=== PATIENT | male | born 1975 | race Caucasian/White ===

== ENCOUNTER 2018-12-31 06:12 | Day surgery (SDC) | payer BC ==
[2018-12-31 06:12] VITALS: PULSE 125
[2018-12-31 06:29] VITALS: BMI 31.6
[2018-12-31 06:33] VITALS: RESP 18
[2018-12-31 08:02] LABS: BASO % 0.4 % (0.0-2.0); EOS # 0.1 K/uL (0.0-0.7); HEMOGLOBIN 14.1 g/dL (12.0-18.0); LYMPH # 1.4 K/uL (1.0-4.3); LYMPH % 21.6 % (20.0-40.0); MEAN CELL VOLUME 85.4 fl (80.0-94.0); MEAN CORPUSCULAR HEMOGLOBIN 28.8 pg (27.0-31.0); MEAN CORPUSCULAR HGB CONC 33.7 g/dL (33.0-37.0); MEAN PLATELET VOLUME 8.5 fl (7.2-11.7); MONO # 0.6 K/uL (0.0-0.8); NEUT # 4.3 K/uL (1.8-7.0); NRBC % 0.1 % (0.0-0.0); RBC 4.9 Mil/uL (4.40-5.90); RED CELL DISTRIBUTION WIDTH 13.1 % (11.5-14.5); WHITE BLOOD COUNT 6.4 K/uL (4.8-10.8)
[2018-12-31 08:09] LABS: PROTHROMBIN TIME 11.3 Seconds (9.8-13.1)
[2018-12-31 08:12] LABS: PARTIAL THROMBOPLASTIN TIME 27.8 Seconds (25.6-37.1)
--- NOTE | 2018-12-31 08:12 | ED PDOC ---
Upper Extremity Pain/Injury Time Seen by Provider: 12/31/18 07:06 Chief Complaint (Nursing): Upper Extremity Problem/Injury Chief Complaint (Provider): Left Elbow Pain History Per: Patient History/Exam Limitations: no limitations Onset/Duration Of Symptoms: Days (1) Current Symptoms Are (Timing): Still Present Quality: "Pain" Additional Complaint(s): 43 year old male presents to the ED for an evaluation of elbow injury onset yesterday. Patient reports he was working out yesterday and lifting weights in the gym when he felt pain to his left elbow and noticed swelling in the area. He had difficulty moving his left elbow and patient went to [facility] where he obtained an x-ray that presented no fracture but was advised a need for a follow up with an orthopedic. Dr. Bernard was called to come to the ED for urgent evaluation. Currently, patient has pain to the left elbow and denies any other complaints. Otherwise, he denies fever, cough or neck pain. PMD: [facility]: Dr. Bernard Past Medical History Reviewed: Historical Data, Nursing Documentation, Vital Signs Vital Signs: Last Vital Signs Temp 98.1 F 12/31/18 06:29 Pulse 76 12/31/18 06:29 Resp 18 12/31/18 06:29 BP 147/87 12/31/18 06:29 Pulse Ox 98 12/31/18 06:29 - Medical History PMH: No Chronic Diseases Denies: Chronic Kidney Disease - Surgical History Other surgeries: right elbow surgery - Family History Family History: States: Unknown Family Hx - Social History Current smoker - smoking cessation education provided: No Alcohol: Social Drugs: Denies - Immunization History Hx Tetanus Toxoid Vaccination: No - Home Medications Home Medications: Ambulatory Orders Medication Instructions Recorded Docusate Sodium [Colace] 100 mg PO BID #10 capsule 12/31/18 Ondansetron HCl [Zofran] 4 mg PO Q6 PRN #10 tablet 12/31/18 oxyCODONE/Acetaminophen [Percocet 1 - 2 ea PO Q4 PRN #30 tab 12/31/18 5/325 mg Tab] - Allergies Allergies/Adverse Reactions: Allergies Allergy/AdvReac Type Severity Reaction Status Date / Time No Known Allergies Allergy Verified 12/31/18 06:29 Review of Systems ROS Statement: Except As Marked, All Systems Reviewed And Found Negative Constitutional: Negative for: Fever, Chills Respiratory: Negative for: Cough, Shortness of Breath Musculoskeletal: Positive for: Other (left elbow pain). Negative for: Neck Pain Neurological: Negative for: Weakness, Numbness Physical Exam - Reviewed Nursing Documentation Reviewed: Yes Vital Signs Reviewed: Yes - Physical Exam Appears: Positive for: Non-toxic Head Exam: Positive for: ATRAUMATIC, NORMAL INSPECTION, NORMOCEPHALIC Skin: Positive for: Normal Color, Warm, Dry. Negative for: Rash Eye Exam: Positive for: EOMI, Normal appearance, PERRL Pulses-Radial (L): 2+ Pulses-Radial (R): 2+ Extremity: Positive for: Normal ROM, Other (On posterior aspect of left elbow and distal aspect of left forearm there is swelling, tenderness and full ROM that is painful). Negative for: Deformity Neurologic/Psych: Positive for: Alert, Oriented (x3) - Laboratory Results Result Diagrams: 12/31/18 07:36 12/31/18 07:36 Lab Results: PT 11.3 Seconds (9.8-13.1) 12/31/18 07:36 INR 1.0 12/31/18 07:36 - ECG O2 Sat by Pulse Oximetry: 98 (RA) Pulse Ox Interpretation: Normal Medical Decision Making Medical Decision Making: Time: 07 Impression: left elbow injury and pain Differential Diagnosis includes but is not limited to: triceps muscle tear, tendon injury and ligament injury Plan: --BBK type and screen --BMP --NPO Diet --CBC w/ Differential --Partial Thromboplastin Time [COAG] --Prothrombin Time [COAG] --Upper EXT any JNT w/o Cont LT [MRI] --Reevaluation Patient's x-ray results are negative at [facility] Case discussed with Dr. Bernard who requested stat MRI of the left elbow Scribe Attestation: Documented by Annabel Donnelly, acting as a scribe for Jahaira Charles MD. Provider Scribe Attestation: All medical record entries made by the Scribe were at my direction and personally dictated by me. I have reviewed the chart and agree that the record accurately reflects my personal performance of the history, physical exam, medical decision making, and the department course for this patient. I have also personally directed, reviewed, and agree with the discharge instructions and disposition. Disposition - Clinical Impression Clinical Impression: Shoulder injury - Patient ED Disposition Is Patient to be Admitted: Yes Discussed With DrJaime: Rachel Bernard Counseled Patient/Family Regarding: Studies Performed, Diagnosis - Disposition Disposition Time: 08:00 Condition: FAIR - Pt Status Changed To: Hospital Disposition Of: SDS- Endo,OR,Cath,IR - POA Present On Arrival: Falls Or Trauma
[2018-12-31 08:14] LABS: BLOOD UREA NITROGEN 18 mg/dl (9-20); CALCIUM 9.4 mg/dL (8.4-10.2); GFR NON-AFRICAN AMERICAN > 60
[2018-12-31] MEDS ORDERED: Lidocaine 4% (Laryng-O-Jet) Kit MM ONE (09:29)
[2018-12-31] MEDS ORDERED: Propofol 10 mg/ml Inj (20 ML) ONE (09:29)
[2018-12-31] MEDS ORDERED: Rocuronium 10 mg/ml (5 ml) ONE (09:29)
[2018-12-31] MEDS ORDERED: Midazolam 2 MG/2 ML VIAL ONE (09:29)
[2018-12-31] MEDS ORDERED: Phenylephrine 10 mg/ml Inj ONE (09:31)
--- NOTE | 2018-12-31 10:11 | MRI ---
MRI left elbow HISTORY: Injury. Evaluate triceps tendon. Comparison: None available. Technique: Multi-echo multiplanar sequences were performed through the left elbow without the use of intravenous contrast. Findings: Complete rupture of the distal triceps tendon from its insertion on the posterior olecranon with tendon retraction measuring 2.5 centimeters. Prominent increased signal extending to the myotendinous junction as well as the adjacent muscle belly suggestive for muscle strain. Large amount of fluid, edema, and hemorrhage seen within the olecranon bursa as well as within the adjacent soft tissues. Biceps and brachialis tendon insertions are preserved. Small elbow joint effusion. Mild increased signal seen within the ulnar nerve as it traverses the cubital tunnel. Clinical correlation. Some mild fraying with increased signal seen within the proximal attachments of the radial collateral and lateral ulnar collateral ligaments which may represent sprain and or partial tearing. Clinical correlation. Mild increased signal seen within the proximal attachment of the common extensor as well as the common flexor tendons. Mild increased signal seen within the proximal attachment of the ulnar collateral ligament also suggestive for a sprain and or mild partial tearing. Clinical correlation. Impression: 1. Complete rupture of the distal triceps tendon from its insertion on the posterior olecranon with tendon retraction measuring 2.5 centimeters. Prominent increased signal extending to the myotendinous junction as well as the adjacent muscle belly suggestive for muscle strain. 2. Large amount of fluid, edema, and hemorrhage seen within the olecranon bursa as well as within the adjacent soft tissues. 3. Small elbow joint effusion. 4. Mild increased signal seen within the ulnar nerve as it traverses the cubital tunnel. Clinical correlation. 5. Some mild fraying with increased signal seen within the proximal attachments of the radial collateral and lateral ulnar collateral ligaments which may represent sprain and or partial tearing. Clinical correlation. 6. Mild increased signal seen within the proximal attachment of the common extensor as well as the common flexor tendons. 7. Mild increased signal seen within the proximal attachment of the ulnar collateral ligament also suggestive for a sprain and or mild partial tearing. Clinical correlation.
[2018-12-31] MEDS ORDERED: Lactated Ringer's 1,000 ML IV ONE ×3 (10:34→16:00)
--- NOTE | 2018-12-31 10:44 | RAD ---
Date of service: 12/31/2018 HISTORY: med clearance COMPARISON: No prior. TECHNIQUE: Chest PA and lateral FINDINGS: LUNGS: No active pulmonary disease. PLEURA: No significant pleural effusion identified. No pneumothorax apparent. CARDIOVASCULAR: No aortic atherosclerotic calcification present. Upper limits normal cardiac size. No pulmonary vascular congestion. OSSEOUS STRUCTURES: No significant abnormalities. VISUALIZED UPPER ABDOMEN: Normal. OTHER FINDINGS: None. IMPRESSION: Borderline cardiomegaly. No pulmonary vascular congestion or acute pulmonary disease appreciable.
[2018-12-31 11:50] LABS: SQUAMOUS EPITHIAL < 1 /hpf (0-5); URINE BILIRUBIN NEGATIVE (NEGATIVE); URINE CLARITY CLEAR (Clear); URINE COLOR YELLOW (YELLOW); URINE GLUCOSE (UA) NEG (NEGATIVE); URINE LEUKOCYTE ESTERASE NEG Leu/uL (Negative); URINE PROTEIN NEGATIVE (NEGATIVE); URINE UROBILINOGEN 0.2-1.0 mg/dL (0.2-1.0)
[2018-12-31 11:56] LABS: URINE BLOOD TRACE (NEGATIVE)
[2018-12-31] MEDS ORDERED: Lidocaine 2% w Epi 1:100,000 Inj IJ ONE (12:02)
[2018-12-31] MEDS ORDERED: Liquid Adhesive TOP ONE (13:17)
[2018-12-31] MEDS ORDERED: Neostigmine 1:1000 (1 mg/ml) Inj ONE (13:18)
--- NOTE | 2018-12-31 13:45 | PCM.SURG1 ---
Surgeon's Initial Post Op Note - Surgeon's Notes Surgeon: Rachel Bernard MD Orchestra Teacher: Tanvir Ng PA-C; Cristy Crow Type of Anesthesia: General Endo Pre-Operative Diagnosis: Left elbow triceps tendon rupture Operative Findings: see op report Post-Operative Diagnosis: same as pre-op dx Operation Performed: Left elbow open repair of triceps tendon Specimen/Specimens Removed: left elbow olecrenon bursa Estimated Blood Loss: EBL {In ML}: 15 Date of Surgery/Procedure: 12/31/18 Time of Surgery/Procedure: 11:00
[2018-12-31] MEDS ORDERED: Oxycodone/Acetaminophen 5/325 mg Tab PO PRN (13:46)
[2018-12-31] MEDS ORDERED: Lactated Ringer's 1,000 ML IV SCH (14:00)
[2018-12-31] MEDS: HYDROmorphone 0.5 mg/0.5 ml ISec IVP PRN ×2 (15:05→15:20)
[2018-12-31] MEDS ORDERED: Oxycodone/Acetaminophen 5/325 mg Tab PO ONE (17:10)
[2018-12-31 17:33] VITALS: BP 141/79; PULSE 76; TEMP 97.7
--- NOTE | 2018-12-31 20:31 | CARD ---
APPROVED REPORT Date of service: 12/31/2018 EKG Measurement Heart [id number] <Conclusion> Normal sinus rhythm Minimal voltage criteria for LVH, may be normal variant Borderline ECG
--- NOTE | 2019-01-01 00:05 | CON ---
DATE: 12/31/2018 ER CONSULTATION DATE OF OPERATION: 12/31/2018 CHIEF COMPLAINT: Left elbow pain. HISTORY OF PRESENT ILLNESS: The patient is a 43-year-old male who felt a pop in his left elbow. The patient presented to [facility] Emergency Room. He was unable to extend against gravity, and there was a valgus deformity of the left elbow at the triceps insertion. The patient denies pain in any other extremity joint, denies any loss of consciousness. PHYSICAL EXAMINATION: EXTREMITIES: Examination of the patient's left elbow reveals extensive swelling and ecchymosis with a palpable defect of triceps tendon. The patient is unable to extend against gravity. Neurovascularly intact distally. IMAGING: MRI of the patient's left elbow showing a near-complete tear of the triceps tendon insertion. ASSESSMENT: A 43-year-old male with acute left triceps tendon rupture. TREATMENT: I have explained to the patient that due to near-complete rupture and inability to extend the arm, the patient requires open surgical fixation with possible allograft supplementation as needed. I have reviewed the risks and benefits of the surgery with the patient. The patient will be taken to the operating room today for open fixation. Rachel Bernard MD
--- NOTE | 2019-01-01 00:29 | OP ---
PROCEDURE DATE: 12/31/2018 ATTENDING PHYSICIAN: Rachel Bernard MD INDUSTRIAL MAINTENANCE TECHNICIAN: Tanvir Ng PA-C PREOPERATIVE DIAGNOSES: 1. Left triceps tendon rupture. 2. Olecranon bursitis and hematoma. POSTOPERATIVE DIAGNOSES: 1. Left triceps tendon rupture. 2. Olecranon bursitis and hematoma. PROCEDURES: 1. Left open triceps tendon repair. 2. Allograft augmentation of degenerative triceps tendon. 3. Extensive debridement of soft tissue and bone including olecranon bursa. IMPLANTS: 1. Arthrex suture anchors. 2. Dermal allograft. ANESTHESIA TYPE: General. ESTIMATED BLOOD LOSS: 100 mL. SPECIMENS: None. COMPLICATIONS: None. HISTORY: The patient is a 43-year-old male who presented to Emergency Room at [facility] with left elbow injury. The patient was unable extend his arm. He underwent an MRI which was showing near complete rupture of the distal triceps insertion. The patient was taken to the operating room the same day for triceps contracture fixation. I reviewed the risks and benefits of the surgery with the patient in detail. The patient is fully comprehended and elected to proceed with the surgery. DESCRIPTION OF PROCEDURE: The patient was brought to the preop holding area. A laterality sheet was completed confirming the patient's left elbow to be correct operative site. An informed consent was signed, and left elbow was marked. The patient was taken to the operating room. He underwent general anesthesia. Afterwards, he was placed in a left lateral decubitus position. All the bony prominences were well padded. The patient was given appropriate prophylactic antibiotics. The left arm was draped and prepped in a standard sterile manner. A sterile tourniquet was applied. Time-out was completed confirming left elbow to be the correct operative site. Next, the arm was then exsanguinated, and the tourniquet was inflated to 150 mmHg. A skin incision was marked using a 10 blade. A curvilinear incision was made around the olecranon tip. Skin dissection was taken down. Care was taken to protect all the critical neurovascular structures. There was extensive hematoma in the olecranon bursa. Using sharp tenotomy scissors, olecranon bursectomy also was performed. There was intrasubstance delamination of the triceps tendon. Using curette and rongeur, extensive soft tissue and bone debridement was performed. Due to poor nature of the tendon tissue, a decision was made to augment the repair with the dermal allograft using a 2-way FiberWire. The allograft was sutured into the remnant of the triceps tendon for fixation. Two Arthrex suture anchors were placed proximal to olecranon tip with double loaded with suture tape. Using a free needle, of sutures were passed to the triceps tendon along with the allograft patch. The sutures were tied and for additional secure fixation, second roll was used with 4.75 SwiveLock anchors. Finally, the elbow was taken through the range of motion and was found to be stable and tension free. Once again, the wound was copiously irrigated to remove debris on the remnant of the soft tissue and bone. Skin was closed in standard fashion, and a sterile dressing was applied. The patient was placed in a posterior splint. There were no complications of surgery. Tanvir Ng, is a certified physician integration assistant who was present for the entirety of the case as her participation was crucial in the patient 's positioning, retraction of critical neurovascular structures, proper implant positioning, and successful completion of the surgery. Rachel Bernard MD
[2019-01-01 07:15] VITALS: O2SAT 98
== END 2018-12-31 13:47 | disposition home or self-care (01) ==
LOC: H.ER 06:12 → H.ERHOLD 09:20 → H.SDS 09:20 → UNDOADMIN 09:20 → H.SDS 13:47 → H.ERHOLD 16:51 → UNDODISIN 18:00
PROVIDERS: ATTEND Orthopaedic Surgery
DX: M70.22 Olecranon bursitis, left elbow (principal); M25.522 Pain in left elbow; M66.88 Spontaneous rupture of other tendons, other sites
CPT/HCPCS: 24105; 24320; 71046; 73221; 80048; 81003; 85025; 85610; 85730; 86850; 86900; 88305; 93005; 99285; J0131; J0690; J1170; J2001; J2250; J2370; J2405; J2704; J2710; J3010; J7120